=== PATIENT | female | born 1995 | race Caucasian/White ===

== ENCOUNTER 2019-08-17 16:19 | Emergency (ER) | payer MEDICAID ==
[~2019-08-17] VITALS: Ht 149.9 cm; Wt 54.9 kg
[2019-08-17 16:43] VITALS: Ht 149.9 cm; Wt 54.9 kg
[2019-08-17 18:04] LABS: BASOPHIL % 0.5 % (0-2); PLATELET COUNT 272 x10^3mcL (130-400); RED CELL DISTRIBUTION WIDTH 13.8 % (11.5-14.5)
[2019-08-17 18:16] LABS: CARBON DIOXIDE 30.4 mmol/L (21-32); CHLORIDE SERUM 102 mmol/L (98-107); CREATININE SERUM 0.5 mg/dL (0.6-1.0); GFR1 > 60 mL/min; GLUCOSE SERUM 85 mg/dL (74-106); POTASSIUM SERUM 3.9 mmol/L (3.5-5.1); SODIUM SERUM 139 mmol/L (136-145)
[2019-08-17 18:20] LABS: ALKALINE PHOSPHATASE 77 U/L (46-116); ALT/SGPT 21 U/L (14-59); AMYLASE 64 U/L (25-115); AST/SGOT 22 U/L (15-37); BILIRUBIN TOTAL 0.44 mg/dL (0.20-1.00); LIPASE 83 IU/L (73-393); TOTAL PROTEIN, SERUM 7.1 g/dL (6.4-8.2)
[2019-08-17 18:56] VITALS: BP 102/73
== END 2019-08-17 18:54 | disposition home or self-care (01) ==
LOC: ED 16:19
PROVIDERS: Emergency Medicine
DX: R10.13 Epigastric pain (principal)
CPT/HCPCS: 36415; J1885; Q0092

== ENCOUNTER 2019-08-24 14:05 | Emergency (ER) | payer MEDICAID ==
[~2019-08-24] VITALS: Ht 149.9 cm; Wt 56.2 kg
[2019-08-24 14:36] VITALS: Ht 149.9 cm; Wt 56.2 kg
[2019-08-24 16:06] VITALS: BP 109/66
== END 2019-08-24 16:06 | disposition home or self-care (01) ==
LOC: ED 14:05
DX: N39.0 Urinary tract infection, site not specified (principal); Z98.890 Other specified postprocedural states

== ENCOUNTER 2019-12-17 01:51 | Inpatient (IN) | payer MEDICAID ==
[~2019-12-17] VITALS: Ht 149.9 cm; Wt 61.2 kg
[2019-12-17 01:54] VITALS: Ht 149.9 cm; Wt 61.2 kg
--- NOTE | 2019-12-17 02:13 | NUR ---
PT PRESENTS TO ED WTIH C/O R FLANK PAIN. PER PT SHE HAS HAD THIS PAIN FOR APPROX 1 WEEK NOW. PT STATES THE PAIN COMES AND GOES HOWEVER SINCE YESTERDAY THE PAIN HAS BEEN CONSTANT. PT DENEIS ANY N/V/D AT THIS TIME. PT DENIES PAINFUL URINATION. PT STATES THAT SHE HAS HAD INCREASED FREQUENCY. PT STATES THAT THE PAIN COMES AND GOES AND MOVES UP AND DOWN HER BACK. PT AXO X4. PT SPEAKING IN CLEAR AND FULL SENTENCES. NAD AT THIS TIME. MD COLLAZO ALREADY PERFORMED MSE AT THIS TIME
[2019-12-17 03:10] LABS: BASOPHIL % 0.6 % (0-2); PLATELET COUNT 293 x10^3mcL (130-400)
[2019-12-17 03:11] LABS: UA SPECIFIC GRAVITY 1.015 (1.005-1.035); microscopic required? YES; urine erythrocyte 3+ (NEGATIVE)
[2019-12-17 03:30] LABS: CHLORIDE SERUM 104 mmol/L (98-107); CREATININE SERUM 0.5 mg/dL (0.6-1.0); GFR1 > 60 mL/min; GLUCOSE SERUM 96 mg/dL (74-106); SODIUM SERUM 140 mmol/L (136-145); TOTAL PROTEIN, SERUM 6.5 g/dL (6.4-8.2)
[2019-12-17 03:31] LABS: ALBUMIN 2.9 g/dL (3.4-5.0); ALKALINE PHOSPHATASE 69 U/L (46-116); ALT/SGPT 19 U/L (14-59); AST/SGOT 20 U/L (15-37); BILIRUBIN TOTAL 0.57 mg/dL (0.20-1.00); CALCIUM 7.8 mg/dL (8.5-10.1)
[2019-12-17 03:33] LABS: POTASSIUM SERUM 2.5 mmol/L (3.5-5.1)
--- NOTE | 2019-12-17 04:44 | NUR ---
REPORT GIVEN TO MARIAN LORENZANA. ALL QUESTIONS AND CONCERNS ADDRESSED AT THIS TIME
--- NOTE | 2019-12-17 05:03 | NUR ---
Pt. arrived to [facility] via gurney accompanied by nurse and boyfriend. pt. is a/o x3, able to make needs known, able to follow commands, no c/o h/a. Pt. at this time is on RA, no s/o SOB or distress, satting at 99%. Pt. is complaining of R/L flank pain to the sides 8/10, and said morphine doesn't help, but toradol kind of helps pain. Resident has made her rounds at this time, and has done her assessment. Pt. otherwise is stable, Tele #[phone], has IV on her RAC w/ K and Mag Nitin w/ NS running. IV site patent, dressing in tact, no s/o redness or infiltration. Will continue to monitor and endorse to next shift RN.
[2019-12-17 05:07] LABS: MAGNESIUM 1.7 mg/dL (1.8-2.4)
[2019-12-17 06:38] VITALS: BP 105/53
--- NOTE | 2019-12-17 08:00 | NUR ---
RECIEVED PATIENT ALERT AND ORIENTED AND REQUESTED PAIN MEDICATION AT THIS TIME. PATIET GIVEN TORADOL ORDERED AND WILL MONITOR FOR EFFECTIVENESS. PATIENT AH CLEAR BUT DIMINIHSED BREATHS OUNDS AN DHAS BEEN FULLY AMBULATORY. PATIENT HAS NO SIGNS OR SYMPTOMS OF ANY ACUTE DISTRESS AT THIS TIME BUT THEN ABRUPTLY STATES THE MEDICATION "TORADOL" WAS NOT EFFECTIVE AT ALL. OFFERED THE NORCO AND WILL MONITOR FOR EFFECTIVENESS. PATIENT HAS DIMINISHED BREATH SOUNDS ND BOWEL SOUNDS ACTIVE. SHE HAS BEEN TOLERAING THE DIET OFFERED. SHE DENIES ANY NAUSEA AT THIS TIME. SHE DENIES ANY DIARRHEA. VITALS ATTHIS TIME AT 97.9, 86, 16, 109/31, 94% ON ROOM AIR. LABS INDICATED THAT THE PATIENT HAS SOME BACTERIA IN THE UFRINE AND NO STONES WERE SEEN ON THE ULTRA SOUND. PATIENT HAS OF MAG AT 1.7 AND POTASSIUM OF 2.5 AND RECEIVED OVERNIGHT POTASSIUM RIDER AND MAGNESIUM RIDER. SHA HAD H AND H OF 10.1/30 AND HAS WBC AT 12.4. PHOS IS AT 2.0 AND NEW ORDERS PENDING FOR REPLACEMENT WELL. PATIENT AH SBEEN NORMAL SINUS ON THE MONITOR ANS BOYFRIED AT BEDSIDE AND SUPPORTIVE WITH CARE.
[2019-12-17 08:54] VITALS: BP 109/31
--- NOTE | 2019-12-17 10:33 | NUR ---
STARTED POTASSIUM RIDER AT THIS TIEM AND WILL MONITO FOR TOLERANCE. SHE SEEMS TO HAVE HAD GOOD EFFECT FROM THE NORCO AND THE TORADOL GIVEN EARLIER. PATIENT HAS BEEN SIPING THE PHOS BUT IS SLOW AT THIS TIME. PATIENT HAS NO INDICATION FO DISTRESS AT THIS TIME.
[2019-12-17 12:25] VITALS: BP 88/56
--- NOTE | 2019-12-17 15:03 | NUR ---
GAVE ANOTHER NORCO COMPLAINTS OF PAIN BUT APPEARED TO BE SLEEPING. PATEINT GFIVNE HER IM INJECTION FOR THE FLU WELL. WILL CONTINUE TO MONITOR INDICATED.
--- NOTE | 2019-12-17 17:00 | NUR ---
PATIENT ALTHOUGH SYMPTOMATIC SHE HAS A VERY LOW BP. WILL CALL THE DOCTOR FOR ORDERS. CONTINUED ON THE IV FLUIDS AT 150CC PER HOUR. SHE HAS TOLERATED OOB AND SHE HAD GOOD RELIEF FROM THE NORCO GIVEN.
[2019-12-17 17:02] VITALS: BP 88/33
--- NOTE | 2019-12-17 18:27 | NUR ---
STARTED BOLUS ORDERED AND ADVISED PATIENT OF THE INDICATION. SHE HAS BEEN WITH LOW BP AND SHE HAS HAD LOW POTASSIUM WELL. SHE IS ENCOURAGED TO AMBULATE INDICATED.
[2019-12-17 19:30] VITALS: BP 103/62
--- NOTE | 2019-12-17 19:40 | NUR ---
RECEIVED REPORT FROM DAY SHIFT RN. PT SITTING UP IN BED. NO SOB ON ROOM AIR. NO C/O N/V/ABD PAIN. NO DISTRESS NOTED. SAFETY MEASURES IN PLACE. BED IN LOWEST POSITION. SIDE RAILS UP X2. INSTRUCTED PT TO USE THE CALL LIGHT FOR ASSISTANCE. CALL LIGHT WITHIN REACH. FAMILY AT BEDSIDE.
--- NOTE | 2019-12-17 22:07 | NUR ---
PT C/O ABD/KATHERYN FLANK SHARP PAIN 07/04. MEDICATED WITH TORADOL.
--- NOTE | 2019-12-18 02:05 | NUR ---
PT RESTING IN BED WITH EYES CLOSED. NO SOB ON ROOM AIR. NO FACIAL GRIMACING. CALL LIGHT WITHIN REACH.
--- NOTE | 2019-12-18 05:30 | NUR ---
PT C/O ABD SHARP PAIN 10, MEDICATED WITH TORADOL.
[2019-12-18 06:22] VITALS: BP 93/48
[2019-12-18 06:28] LABS: BASOPHIL % 0.4 % (0-2); PLATELET COUNT 258 x10^3mcL (130-400); RED CELL DISTRIBUTION WIDTH 13.7 % (11.5-14.5)
--- NOTE | 2019-12-18 06:49 | NUR ---
PT RESTING WITH EYES CLOSED. NO FACIAL GRIMACING. NO DISTRESS NOTED. URINE STRAINED. NO STONES OR SEDIMENTS NOTED. C/O ABD/FLANK PAIN X2, MEDICATED WITH TORADOL. PT STATES EFFECTIVE. SAFETY MEASURES MAINTAINED. ALL NEEDS ATTENDED TO. CALL LIGHT WITHIN REACH. WILL ENDORSE CARE TO DAY SHIFT RN.
--- NOTE | 2019-12-18 07:10 | NUR ---
RECEIVED PATIENT FROM LEGAL SERVICES MANAGER NURSE, AOX4, TELE 6, NSR, PALPABLE PULSES, NO EDEMA, , CTA ON BLF, +BS, LAST BM 12/18/19, VOIDS WITH NO DYSURIA, BILATERAL FLANK PAIN TOLERABLE, NO WEAKNESS, FULL ROM , SKIN DRY AND INTACT, NS INFUSING AT 80CC/HR TO RAC, NO REDNESS OR INFILTRATION. CALL LIGHT WITHIN REACH. BED AT LOWEST POSITION.
[2019-12-18 07:29] LABS: CARBON DIOXIDE 24.3 mmol/L (21-32); CHLORIDE SERUM 108 mmol/L (98-107); GLUCOSE SERUM 83 mg/dL (74-106); POTASSIUM SERUM 3.6 mmol/L (3.5-5.1); SODIUM SERUM 140 mmol/L (136-145)
[2019-12-18 07:30] LABS: CALCIUM 7.5 mg/dL (8.5-10.1); CREATININE SERUM 0.5 mg/dL (0.6-1.0); GFR1 > 60 mL/min; PHOSPHOROUS 2.8 mg/dL (2.5-4.9)
--- NOTE | 2019-12-18 08:27 | NUR ---
SEEN AOX4, COMPLAINTS OF R FLANK PAIN /, NORCO GIVEN. TELE 6 NSR, PO MEDICATIONS GIVEN. ROCEPHIN IVPB INFUSING WELL AT 100CC/HR . NO REDNESS OR INFILTRAITON. CALL LIGHT WITHIN REACH. BED AT LOWEST POSITION.
[2019-12-18 08:55] VITALS: BP 88/51
--- NOTE | 2019-12-18 09:39 | NUR ---
PATIENT COMFORTABLY ASLEEP AT THIS TIME. NO FEVER, CHILLS NOTED. NOT IN APPARENT DISTRESS.
[2019-12-18 11:50] VITALS: BP 102/62
--- NOTE | 2019-12-18 12:00 | NUR ---
PATIENT COMFORTABLY ASLEEP AND NOT IN DISTRESS.
--- NOTE | 2019-12-18 16:16 | NUR ---
PHOSNAK PO GIVEN.
--- NOTE | 2019-12-18 16:34 | NUR ---
KEEGAN NUNO MADE AWARE OF PATIENT'S 3 EPISODES OF WATERY STOOL. LAST EPISODE WAS AT 3PM, PATIENT HAD NO WATERY STOOL SINCE THEN. PER KEEGAN NUNO, CONTINUE TO MONITOR PATIENT. NO ORDERS FOR NOW.
[2019-12-18 16:54] VITALS: BP 92/38
--- NOTE | 2019-12-18 17:20 | NUR ---
SEEN ASLEEP LYING COMFORTABLY IN BED. NOT IN APPARENT DISTRESS
[2019-12-18 19:10] VITALS: BP 103/57
--- NOTE | 2019-12-18 19:10 | NUR ---
RECEIVED PT AWAKE ALERT AND VERBALLY RESPONSIVE.DENIES ANY PAIN AT THIS TIME.BP 103/57 MMHG,HR 94.IV TO RAC LEAKING.D/C IV AND REINSERTED TO LFA WITH GOOD BLOOD RETURN.L ARM NOTED WITH SOME SWELLING.ELEVATED ON A PILLOW AND WILL MONITOR.
--- NOTE | 2019-12-19 04:46 | NUR ---
PT SLEPT WELL ALL NIGHT.MEDICATED WITH TORADOL 30 MG IVP X1 FOR R SIDE PAIN WITH GOOD RELIEF.ALL NEEDS MET.WILL CONTINUE TO MONITOR.
[2019-12-19 05:56] VITALS: BP 106/60
[2019-12-19 06:39] LABS: BASOPHIL % 0.4 % (0-2); PLATELET COUNT 243 x10^3mcL (130-400); RED CELL DISTRIBUTION WIDTH 13.5 % (11.5-14.5)
[2019-12-19 06:59] LABS: CALCIUM 7.3 mg/dL (8.5-10.1); CHLORIDE SERUM 109 mmol/L (98-107); CREATININE SERUM 0.4 mg/dL (0.6-1.0); GFR1 > 60 mL/min; GLUCOSE SERUM 94 mg/dL (74-106); POTASSIUM SERUM 3.5 mmol/L (3.5-5.1); SODIUM SERUM 142 mmol/L (136-145)
--- NOTE | 2019-12-19 07:20 | NUR ---
SEEN AOX4, NOT IN DISTRESS, WITH NO SUBJECTIVE COMPLAINTS OF PAIN, N/V, NO DYSURIA, NO FEVER, NO CHILLS, AP , RRR, S1 AND S2 HEARD, PALPABLE PULSES, NO EDEMA, CTA ON BLF, NO DYSPNEA, +BS, NONTENDER, NO ORGANOMEGALY, VOIDS WITH NO DYSURIA, NO WEAKNESS, FULL ROM, SKIN DRY AND INTACT, IV INTACT AND PATENT, SL. NO REDNESS OR INFILTRATION. CALL LIGHT WITHIN REACH. BED AT LOWEST POSITION.
--- NOTE | 2019-12-19 08:04 | NUR ---
SEEN AOX4, NOT IN DISTRESS, NO SUBJECTIVE COMPLAINTS, PO MEDICATIONS GIVEN. ROCEPHIN IVPB INFUSING WELL AT 100CC/HR. NO REDNESS OR INFILTRATION.
[2019-12-19 08:17] VITALS: BP 97/62
[2019-12-19 08:32] VITALS: BP 97/62
[2019-12-19] MEDS ORDERED: FLO4 PO (08:48)
[2019-12-19] MEDS ORDERED: TOR10 PO (08:49)
[2019-12-19] MEDS ORDERED: CIPRO500 MG PO (08:54)
--- NOTE | 2019-12-19 10:00 | NUR ---
SEEN AOX4, DISCHARGE INSTRUCTIONS GIVEN. INSTRUCTED TO FF UP WITH PCP. PRESCRIPTION PROVIDED AND INSTRUCTED TO PRESENT TO PHARMACY. BELONGINGS WITH PATIENT. IV REMOVED. CATHETER INTACT. NO REDNESS OR INFILTRATION. TELE MONITOR 6 REMOVED AND GIVEN TO SNUFF DRIER EDDIE. CALL LIGHT WITHIN REACH. BED AT LOWEST POSITION. WAITING FOR TRANSPORT.
--- NOTE | 2019-12-19 10:30 | NUR ---
PATIENT DISCHARGED, AMBULATORY. ACCOMPANIED BY .
== END 2019-12-19 10:35 | disposition home or self-care (01) | DRG 463 ==
LOC: ED 01:51 → DU 04:24
PROVIDERS: Emergency Medicine; ADMIT Student in an Organized Health Care Education/Training Program
DX: N10 Acute pyelonephritis (principal); R65.10 Systemic inflammatory response syndrome (SIRS) of non-infectious origin without acute organ dysfunction; E44.0 Moderate protein-calorie malnutrition; N13.30 Unspecified hydronephrosis; E87.6 Hypokalemia; R31.29 Other microscopic hematuria; D72.829 Elevated white blood cell count, unspecified; E86.0 Dehydration; D64.9 Anemia, unspecified; F17.210 Nicotine dependence, cigarettes, uncomplicated; Z68.23 Body mass index [BMI] 23.0-23.9, adult
CPT/HCPCS: 90658; G0378; J0696; J1885; J2270; J2405; J3010; J3475; J3480; J7030; Q0092